=== PATIENT | female | born 1995 | race African-American/Black ===

== ENCOUNTER 2016-09-27 19:48 | Emergency (ER) | payer BC, OTHER ==
[~2016-09-27] VITALS: Ht 162.6 cm; Wt 81.6 kg
[2016-09-27] MEDS ORDERED: NS IV 1000 ML 1,000 ML IV STA (20:04)
[2016-09-27] MEDS ORDERED: ONDANSETRON 4 MG/2 ML (SDV) Z0FRAN IVP ONE (20:15)
--- NOTE | 2016-09-27 20:15 | ED GI ---
General Chief Complaint: Abdominal/GI Problems Stated Complaint: VOMITING,DIZZINESS Nursing Triage Note: Pt c/o nausea/vomiting x2 weeks and is concerned she may be dehydrated. Pt also c/o feeling dizzy. Pt states she recently found out she was . Sepsis Screen: No Definite Risk Source of Information: Patient Exam Limitations: No Limitations History of Present Illness Time Seen By Provider: 19:55 Initial Comments Here with persistent nausea and vomiting over the last couple of weeks. She is and found out 2 weeks ago. She missed her menstrual period in August so she could be 4-8 weeks along. She denies vaginal discharge or bleeding. She denies lower abdominal pain. She is able to take some sips of fluid now but has had moderate amount of difficulty all day. States that she feels like she is dehydrated. Timing/Duration: 1 Week Severity/Quality: Moderate, Other (nausea and vomiting) Location: Generalized Abdomen Radiation: No Radiation Activities at Onset: None Associated Symptoms: No Chest Pain, No Fever/Chills, Nausea/VomitingNo Weakness Allergies and Home Medications Allergies Coded Allergies: No Known Drug Allergies (Unverified , 09/27/16) Home Medications Cephalexin 500 Mg Tablet #13 500 MG PO BID Prescribed by: BO WASSERMAN on 09/27/16 2343 Promethazine HCl 25 Mg Tablet #14 25 MG PO Q8H PRN PRN NAUSEA/VOMITING Prescribed by: BO WASSERMAN on 09/27/16 2343 Review of Systems Constitutional: see HPINo chills, No fever EENTM: No Symptoms Reported Respiratory: No Symptoms Reported Cardiovascular: See HPI Lightheadedness Gastrointestinal: See HPI Abdominal PainDenies Constipated, Denies Diarrhea, Nausea Vomiting Genitourinary: No Symptoms Reported Musculoskeletal: no symptoms reported Skin: no symptoms reported All Other Systems Reviewed Negative Unless Noted: Yes Past Bccxuoe-Duqdqh-Zdnteh Hx Patient Social History Alcohol Use: Denies Use Recreational Drug Use: No Smoking Status: Never a Smoker Recent Foreign Travel: No Contact w/Someone Who Travel: No Recent Infectious Disease Expo: No Recent Hopitalizations: No Seasonal Allergies Seasonal Allergies: No Surgeries HX Surgeries: No Respiratory Hx Respiratory Disorders: Yes Respiratory Disorders: Asthma Cardiovascular Hx Cardiac Disorders: No Neurological Hx Neurological Disorders: No Reproductive System Hx Reproductive Disorders: No Genitourinary Hx Genitourinary Disorders: No Gastrointestinal Hx Gastrointestinal Disorders: No Musculoskeletal Hx Musculoskeletal Disorders: No Endocrine Hx Endocrine Disorders: No HEENT HX ENT Disorders: No Cancer Hx Cancer: No Psychosocial Hx Psychiatric Problems: No Integumentary HX Skin/Integumentary Disorder: No Blood Transfusions Hx Blood Disorders: No Reviewed Nursing Assessment Reviewed/Agree w Nursing PMH: Yes Family Medical History Significant Family History: No Pertinent Family Hx Physical Exam Vital Signs VS - Last 72 Hours, by Label 09/27/16 19:57 Temp 96.6 Pulse 130 Resp 18 B/P 144/90 Pulse Ox 98 O2 Delivery Room Air Capillary Refill : Less Than 3 Seconds General Appearance: WD/WN no apparent distress HEENT: PERRL/EOMI pharynx normal Neck: full range of motion supple Respiratory: lungs clear normal breath sounds Cardiovascular: no murmur tachycardia Gastrointestinal: non tender soft Extremities: non-tender no pedal edema no calf tenderness Back: normal inspection no CVA tenderness no vertebral tenderness Neurologic/Psychiatric: alert oriented x 3 Skin: normal color warm/dry Focused Exam Lactic Acid Level Laboratory Tests Test 09/27/16 20:07 Alanine Aminotransferase (ALT/SGPT) 23U/L (0-55) Albumin 4.5G/DL (3.2-4.5) Alkaline Phosphatase 74U/L (40-136) Anion Gap 17MMOL/L (5-14) H Aspartate Amino Transf (AST/SGOT) 19U/L (5-34) BUN/Creatinine Ratio 13 Blood Urea Nitrogen 13MG/DL (7-18) Calcium Level 10.1MG/DL (8.5-10.1) Carbon Dioxide Level 20MMOL/L (21-32) L Chloride Level 97MMOL/L (98-107) L Creatinine 0.97MG/DL (0.60-1.30) Estimat Glomerular Filtration Rate > 60 Glucose Level 129MG/DL (70-105) H Magnesium Level 2.1MG/DL (1.8-2.4) Potassium Level 3.7MMOL/L (3.6-5.0) Serum Test, Qualitative POSITIVE (NEGATIVE) Sodium Level 134MMOL/L (135-145) L Total Bilirubin 0.5MG/DL (0.1-1.0) Total Protein 8.0G/DL (6.4-8.2) Progress/Results/Core Measures Results/Orders Lab Results Laboratory Tests Test 09/27/16 20:07 09/27/16 22:59 Range/Units Alanine Aminotransferase (ALT/SGPT) 23 0-55 U/L Albumin 4.5 3.2-4.5 G/DL Alkaline Phosphatase 74 40-136 U/L Anion Gap 17 H 5-14 MMOL/L Aspartate Amino Transf (AST/SGOT) 19 5-34 U/L BUN/Creatinine Ratio 13 Band Neutrophils 2 % Basophils # (Auto) 0.1 0.0-0.1 10^3/uL Basophils % (Manual) 1 % Basophils (%) (Auto) 0 0-10 % Blood Morphology Comment NORMAL Blood Urea Nitrogen 13 7-18 MG/DL Calcium Level 10.1 8.5-10.1 MG/DL Carbon Dioxide Level 20 L 21-32 MMOL/L Chloride Level 97 L 98-107 MMOL/L Creatinine 0.97 0.60-1.30 MG/DL Eosinophils # (Auto) 0.2 0.0-0.3 10^3/uL Eosinophils % (Manual) 0 % Eosinophils (%) (Auto) 1 0-10 % Estimat Glomerular Filtration Rate > 60 Glucose Level 129 H 70-105 MG/DL Hematocrit 45 35-52 % Hemoglobin 15.6 11.5-16.0 G/DL Lymphocytes # (Auto) 4.0 1.0-4.0 X 10^3 Lymphocytes % (Manual) 22 % Lymphocytes (%) (Auto) 22 12-44 % Magnesium Level 2.1 1.8-2.4 MG/DL Mean Corpuscular Hemoglobin 32 25-34 PG Mean Corpuscular Hemoglobin Concent 35 32-36 G/DL Mean Corpuscular Volume 92 80-99 FL Mean Platelet Volume 11.0 H 7.4-10.4 FL Monocytes # (Auto) 1.5 H 0.0-1.0 X 10^3 Monocytes % (Manual) 12 % Monocytes (%) (Auto) 8 0-12 % Neutrophils # (Auto) 12.3 H 1.8-7.8 X 10^3 Neutrophils % (Manual) 63 % Neutrophils (%) (Auto) 68 42-75 % Platelet Count 254 130-400 10^3/uL Potassium Level 3.7 3.6-5.0 MMOL/L Red Blood Count 4.87 4.35-5.85 10^6/uL Red Cell Distribution Width 12.5 10.0-14.5 % Serum Test, Qualitative POSITIVE NEGATIVE Sodium Level 134 L 135-145 MMOL/L Total Bilirubin 0.5 0.1-1.0 MG/DL Total Protein 8.0 6.4-8.2 G/DL White Blood Count 18.1 H 4.3-11.0 10^3/uL Urine Bacteria FEW H /HPF Urine Bilirubin NEGATIVE NEGATIVE Urine Casts NONE /LPF Urine Clarity SLIGHTLY CLOUDY Urine Color YELLOW Urine Crystals NONE /LPF Urine Culture Indicated YES Urine Glucose (UA) 4+ H NEGATIVE Urine Ketones 4+ H NEGATIVE Urine Leukocyte Esterase 3+ H NEGATIVE Urine Mucus SMALL H /LPF Urine Nitrite NEGATIVE NEGATIVE Urine Protein 2+ H NEGATIVE Urine RBC 0-2 /HPF Urine RBC (Auto) 1+ H NEGATIVE Urine Specific [place] 1.025 H 1.016-1.022 Urine Squamous Epithelial Cells 2-5 /HPF Urine Urobilinogen 1 NORMAL MG/DL Urine WBC 10-25 H /HPF Urine pH 5 5-9 My Orders Orders-BO WASSERMAN MD Cbc With Automated Diff (09/27/16 20:04) Comprehensive Metabolic Panel (09/27/16 20:04) Hcg,Qualitative Serum (09/27/16 20:04) Magnesium (09/27/16 20:04) Ua Culture If Indicated (09/27/16 20:04) Abo Rh Type (09/27/16 20:04) Us Ob Single Fetus<14 [id number] (09/27/16 20:04) Ondansetron Injection (Zofran Injectio (09/27/16 20:15) Ns Iv 1000 Ml (Sodium Chloride 0.9%) (09/27/16 20:04) Saline Lock/Iv-Start (09/27/16 20:04) Manual Differential (09/27/16 20:07) D5 Ns 1000 Ml Iv Solution (Dextrose 5%/0 (09/27/16 21:54) Urine Culture (09/27/16 22:59) Cephalexin Capsule (Keflex Capsule) (09/27/16 23:45) Medications Given in ED Current Medications Medications Dose Ordered Sig/Lamar Route Start Time Stop Time Status Last Admin Dose Admin Cephalexin HCl 500 mg ONCE ONCE PO 09/27/16 23:45 09/27/16 23:46 DC 09/27/16 23:45 500 MG Ondansetron HCl 4 mg ONCE ONCE IVP 09/27/16 20:15 09/27/16 20:16 DC 09/27/16 20:27 4 MG Vital Signs/I&O Vital Sign - Last 12Hours 09/27/16 19:57 Temp 96.6 Pulse 130 Resp 18 B/P 144/90 Pulse Ox 98 O2 Delivery Room Air Blood Pressure Mean: 108 Progress Note : Progress Note Seen and evaluated. IV, labs and UA ordered. Normal saline 1 L bolus. Zofran 4 mg IV. I did discuss the risk and benefits of Zofran with the patient and she was okay with a single dose. Monitor patient. Repeat fluids bolus with D5NS 1 L bolus. Still pending UA. 2300: UA obtained. Patient states that she feels much better. 2340: UTI noted. Keflex 500 mg by mouth. Discharged home with return precautions. Patient verbalize understanding instructions and agreement with plan. Diagnostic Imaging Diagonstic Imaging: Ultrasound Plain Films/CT/US/NM/MRI: pelvis Comments NAME: [facility] REC#: [id number] PT STATUS: REG ER : 1995 PHYSICIAN: BO WASSERMAN MD ADMIT DATE: 09/27/16/ER Signed Date of Exam: 09/27/16 US OB SINGLE FETUS<14 [id number] Procedure: US OB single fetus <14 wks. Technique: Multiple real-time grayscale images were obtained over the gravid uterus in various projections. Indication: Nausea and vomiting with . Comparison: None. Discussion: Single live intrauterine at 8 weeks 1 day by sonographic measurements. EDC by today's ultrasound is 05/08/2017. [place]-rump length measures 1.61 cm. heart rate measures 156 beats per minute. No acute abnormality identified. No abnormal adnexal mass or fluid. Impression: Single live intrauterine at 8 weeks 1 day by sonographic measurements. Dictated by: Dictated on workstation # [id number] Dict: 09/27/162041 Trans: 09/27/162203 [facility] [id number] Interpreted by: HEVER ADORNO MD Electronically signed by:HEVER ADORNO MD 09/27/16 6207 Departure Impression Impression: Primary Impression: Nausea and vomiting during Additional Impressions: Dehydration during Urinary tract infection Qualified Code: N30.00 - Acute cystitis without hematuria Disposition: 01 HOME, SELF-CARE Condition: Improved Departure-Patient Inst. Decision time for Depature: 23:06 Referrals: MELY JORDAN ERIN N MD [facility] (PCP) Primary Care Physician NIKKI WOMACK DO Patient Instructions: Nausea and Vomiting of (DC), Dehydration, Adult (DC), Urinary Tract Infection, Adult (DC) Add. Discharge Instructions: All discharge instructions reviewed with patient and/or family. Voiced understanding. Drink plenty of fluids. Follow-up with your Dr. in one to 2 days for recheck and further evaluation. You may follow-up with [facility] to assist with finding local base cloth inspector as needed. Return for worse pain, fever, vomiting, weakness, breathing problems or other concerns as needed. Scripts Promethazine HCl (Promethazine Tablet)25 Mg [id number] Mg PO Q8H PRN NAUSEA/ VOMITING #14 TAB Prov:BO WASSERMAN MD 09/27/16 Cephalexin 500 Mg [id number] Mg PO BID #13 TAB Prov:BO WASSERMAN MD 09/27/16 Copy Copies To 1: AYSE COELLO MD, TIMOTHY D MD Sep 27, 2016 20:15
[2016-09-27 20:16] LABS: BASOPHILS # (AUTO) 0.1 10^3/uL (0.0-0.1); BASOPHILS % (AUTO) 0 % (0-10); EOSINOPHILS # (AUTO) 0.2 10^3/uL (0.0-0.3); EOSINOPHILS % (AUTO) 1 % (0-10); LYMPHOCYTES % (AUTO) 22 % (12-44); MEAN CORPUSCULAR HEMOGLOBIN 32 PG (25-34); MEAN CORPUSCULAR HGB CONC 35 G/DL (32-36); MEAN CORPUSCULAR VOLUME 92 FL (80-99); MONOCYTES # (AUTO) 1.5 X 10^3 (0.0-1.0); MONOCYTES % (AUTO) 8 % (0-12); NEUTROPHILS # (AUTO) 12.3 X 10^3 (1.8-7.8); NEUTROPHILS % (AUTO) 68 % (42-75); PLATELET COUNT 254 10^3/uL (130-400); RED BLOOD COUNT 4.87 10^6/uL (4.35-5.85); RED CELL DISTRIBUTION WIDTH 12.5 % (10.0-14.5); WHITE BLOOD COUNT 18.1 10^3/uL (4.3-11.0)
[2016-09-27 20:29] LABS: BAND NEUTROPHILS 2 %; BASOPHILS % (MANUAL) 1 %; EOSINOPHILS % (MANUAL) 0 %; LYMPHOCYTES % (MANUAL) 22 %; NEUTROPHILS % (MANUAL) 63 %
[2016-09-27 20:36] LABS: ALANINE AMINOTRANSFERASE 23 U/L (0-55); ALBUMIN 4.5 G/DL (3.2-4.5); ANION GAP 17 MMOL/L (5-14); ASPARTATE AMINO TRANSFERASE 19 U/L (5-34); BILIRUBIN,TOTAL 0.5 MG/DL (0.1-1.0); BLOOD UREA NITROGEN 13 MG/DL (7-18); BUN/CREATININE RATIO 13; CALCIUM 10.1 MG/DL (8.5-10.1); CARBON DIOXIDE 20 MMOL/L (21-32); CHLORIDE 97 MMOL/L (98-107); CREATININE SERUM 0.97 MG/DL (0.60-1.30); GFR ESTIMATED > 60; GLUCOSE 129 MG/DL (70-105); MAGNESIUM 2.1 MG/DL (1.8-2.4); POTASSIUM 3.7 MMOL/L (3.6-5.0); SODIUM 134 MMOL/L (135-145)
--- NOTE | 2016-09-27 20:45 | Diagnostic Imaging Report ---
Procedure: US OB single fetus <14 wks. Technique: Multiple real-time grayscale images were obtained over the gravid uterus in various projections. Indication: Nausea and vomiting with . Comparison: None. Discussion: Single live intrauterine at 8 weeks 1 day by sonographic measurements. EDC by today's ultrasound is 05/08/2017. [place]-rump length measures 1.61 cm. heart rate measures 156 beats per minute. No acute abnormality identified. No abnormal adnexal mass or fluid. Impression: Single live intrauterine at 8 weeks 1 day by sonographic measurements. Dictated by: Dictated on workstation # [id number]
[2016-09-27] MEDS ORDERED: D5 NS 1000 ML IV SOLUTION 1,000 ML IV STA (21:54)
[2016-09-27 23:04] LABS: BILIRUBIN,URINE NEGATIVE (NEGATIVE); KETONES,URINE 4+ (NEGATIVE); LEUKOCYTE ESTERASE ,URINE 3+ (NEGATIVE); NITRITE,URINE NEGATIVE (NEGATIVE); PH,URINE 5 (5-9); PROTEIN,URINE 2+ (NEGATIVE); UROBILINOGEN,URINE 1 MG/DL (NORMAL)
[2016-09-27] MEDS ORDERED: PROM25TA14 PO (23:43)
[2016-09-27] MEDS ORDERED: CEPH500T PO (23:43)
[2016-09-27] MEDS ORDERED: CEPHALEXIN 250 MG (KEFLEX) CAP PO ONE (23:45)
[2016-09-27 23:57] VITALS: BP 135/93
== END 2016-09-27 23:57 | disposition home or self-care (01) ==
LOC: ER 19:51
DX: O21.1 Hyperemesis gravidarum with metabolic disturbance (principal); O23.41 Unspecified infection of urinary tract in pregnancy, first trimester; R42 Dizziness and giddiness; Z3A.08 8 weeks gestation of pregnancy
CPT/HCPCS: 36415; 76801; 80053; 81000; 83735; 84703; 85007; 85027; 86900; 86901; 87088; 96361; 96374